=== PATIENT | female | born 1965 | race Caucasian/White ===

== ENCOUNTER 2016-06-02 00:18 | Emergency (ER) | payer MEDICARE, MEDICAID ==
[~2016-06-02] VITALS: Ht 165.1 cm; Wt 66.0 kg
[~2016-06-02 00:18] MED LIST: ALPR2TAB3 PO; BACL10TA PO; CIPR500T4 PO; ENDO7.5T10 PO; NAPR-576 PO; NAPR500 PO; PERC10TA27 PO; TOPI25CA PO; TRAZ50TA4 PO; ZOFR4TAB3 PO
[2016-06-02 00:20] VITALS: BP 101/69; PULSE 112; RESP 18; TEMP 98.7; O2SAT 97
[2016-06-02] MEDS ORDERED: PERC7.5T13 PO (03:26)
[2016-06-02] MEDS ORDERED: XANA1TAB2 PO (03:26)
[2016-06-02] MEDS ORDERED: BACL10TA PO (03:26)
[2016-06-02] MEDS ORDERED: TEMA30CA PO (03:26)
[2016-06-02] MEDS ORDERED: ZOFR4TAB PO (03:26)
[2016-06-02] MEDS ORDERED: AMIT50TA3 PO (03:26)
[2016-06-02 03:28] VITALS: BP 113/94; PULSE 110; RESP 18; TEMP 98.1; O2SAT 98
[2016-06-02] MEDS ORDERED: SODIUM CHLOR 0.9% 1000 ML INJ 1,000 ML IV ONE (03:54)
[2016-06-02] MEDS ORDERED: PROCHLORPERAZINE INJ 10 MG/2 ML VIAL IVP ONE (04:00)
[2016-06-02] MEDS ORDERED: diphenhydrAMINE HCL 50 MG/ML VIAL IVP ONE (04:00)
[2016-06-02] MEDS ORDERED: KETOROLAC TROMETHAMINE 30 MG/ML (IVP) VIAL IVP ONE (04:00)
[2016-06-02] MEDS ORDERED: SODIUM CHLORIDE 0.9% FLUSH 5 ML FLUSH IVF PRN (04:00)
[2016-06-02 04:27] VITALS: O2SAT 100
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
== END 2016-06-02 06:41 | disposition left against medical advice (07) ==
LOC: NEPE 00:18
DX: R51 Headache (principal); Z86.73 Personal history of transient ischemic attack (TIA), and cerebral infarction without residual deficits
CPT/HCPCS: 99283